=== PATIENT | male | born 1960 | race Caucasian/White ===

== ENCOUNTER 2021-01-02 08:45 | Emergency (ER) | payer MEDICARE ==
[~2021-01-02] VITALS: Ht 182.9 cm; Wt 70.3 kg
[~2021-01-02 08:45] MED LIST: Augmentin 875-1 EACH PO; Bactrim Ds Tab1 EACH PO; Flonase 0.05% N16 GM; HYDR1TAB94 PO; IBUP800 PO; PSEU120ER PO
[2021-01-02 10:13] LABS: BASOPHILS ABSOLUTE AUTO 0.06 K/mm3 (0.00-0.23); BASOPHILS PERCENT AUTO 0 % (0-2); EOSINOPHILS ABSOLUTE AUTO 0.01 K/mm3 (0.00-0.68); EOSINOPHILS PERCENT AUTO 0 % (0-6); Hematocrit 43.4 % (37.0-53.0); Hemoglobin 14.2 g/dL (13.5-17.5); IMMATURE GRAN ABSOLUTE AUTO 0.08 K/mm3 (0.00-0.10); IMMATURE GRAN PERCENT AUTO 1 % (0-1); LYMPHOCYTES ABSOLUTE AUTO 1.62 K/mm3 (0.84-5.20); LYMPHOCYTES PERCENT AUTO 9 % (21-46); MONOCYTES ABSOLUTE AUTO 1.11 K/mm3 (0.16-1.47); MONOCYTES PERCENT AUTO 6 % (4-13); Mean Corpuscular HGB 30.7 pg (26.0-34.0); Mean Corpuscular HGB Conc 32.7 g/dL (31.5-36.5); Mean Corpuscular Volume 94 fL (80-100); Mean Platelet Volume 9.7 fL (9.1-12.4); NEUTROPHILS ABSOLUTE AUTO 14.37 K/mm3 (1.96-9.15); NEUTROPHILS PERCENT AUTO 83 % (41-73); Platelet Count 289 K/mm3 (150-400); RDW Coefficient Variation 12.1 % (11.7-14.2); RDW Standard Deviation 42.3 fL (35.1-46.3); Red Blood Cell Count 4.62 M/mm3 (4.30-5.90); White Blood Cell Count 17.25 K/mm3 (4.00-11.30)
[2021-01-02 10:35] LABS: Alanine Aminotransfer (ALT/SGP 18 U/L (12-78); Albumin, Blood 3.6 g/dL (3.4-5.0); Albumin/Globulin Ratio 0.9 (0.8-1.8); Alk Phos 92 U/L (50-136); Anion Gap 6 mmol/L (6-16); Aspartate Aminotrans (AST/SGOT 10 U/L (12-37); Bilirubin, Total 0.7 mg/dL (0.1-1.0); Blood Urea Nitrogen 16 mg/dL (8-24); Bun/Creatinine Ratio 19.8 (12.0-20.0); CO2, Blood 25 mmol/L (21-32); Calcium, Blood 8.7 mg/dL (8.5-10.1); Chloride, Blood 103 mmol/L (98-108); Creatinine, Blood 0.81 mg/dL (0.60-1.20); Glomerular Filtration Rate >60 (60-); Glucose, Blood 132 mg/dL (70-99); Potassium, Blood 3.8 mmol/L (3.5-5.5); Sodium, Blood 134 mmol/L (136-145); Total Protein, Blood 7.6 g/dL (6.4-8.2)
[2021-01-02] MEDS ORDERED: Cephalexin500 M1 PO (13:35)
[2021-01-02] MEDS ORDERED: Norco 5-325 Ta1 EACH PO (13:44)
== END 2021-01-02 14:07 | disposition home or self-care (01) ==
LOC: ER 08:45
PROVIDERS: Physician Assistant
DX: L03.116 Cellulitis of left lower limb (principal); D72.829 Elevated white blood cell count, unspecified
CPT/HCPCS: 20610; 36415; 73030; 73564; 73701; 80053; 85025; 85651; 86140; 96365-59; 96375-59; 99284-25; J0696; J1170; J1885; J2405; Q9967

== ENCOUNTER 2025-05-07 01:15 | Inpatient (IN) | payer MEDICARE ==
[~2025-05-07] VITALS: Ht 185.4 cm; Wt 65.8 kg
[~2025-05-07 01:15] MED LIST changes: +Cephalexin500 M1 PO; +Norco 5-325 Ta1 EACH PO
[2025-05-07 02:11] LABS: BASOPHILS ABSOLUTE AUTO 0.07 K/mm3 (0.00-0.23); BASOPHILS PERCENT AUTO 0 % (0-2); EOSINOPHILS ABSOLUTE AUTO 0.19 K/mm3 (0.00-0.68); EOSINOPHILS PERCENT AUTO 1 % (0-6); Hematocrit 37.7 % (37.0-53.0); Hemoglobin 12.2 g/dL (13.5-17.5); IMMATURE GRAN ABSOLUTE AUTO 0.22 K/mm3 (0.00-0.10); IMMATURE GRAN PERCENT AUTO 1 % (0-1); LYMPHOCYTES ABSOLUTE AUTO 2.01 K/mm3 (0.84-5.20); LYMPHOCYTES PERCENT AUTO 10 % (21-46); MONOCYTES ABSOLUTE AUTO 0.84 K/mm3 (0.16-1.47); MONOCYTES PERCENT AUTO 4 % (4-13); Mean Corpuscular HGB Conc 32.4 g/dL (31.5-36.5); Mean Corpuscular Volume 96 fL (80-100); NEUTROPHILS ABSOLUTE AUTO 17.89 K/mm3 (1.96-9.15); NEUTROPHILS PERCENT AUTO 84 % (41-73); NRBC ABSOLUTE 0.00 K/mm3 (0.00-0.02); NRBC Auto 0.0 /100 WBC (0.0-0.2); Platelet Count 326 K/mm3 (150-400); RDW Coefficient Variation 13.3 % (11.7-14.2); RDW Standard Deviation 47.2 fL (35.1-46.3)
[2025-05-07 02:22] LABS: Prothrombin Time Results 11.1 Sec (9.7-11.5)
[2025-05-07 02:29] LABS: Alanine Aminotransfer (ALT/SGP 18 U/L (12-78); Albumin, Blood 3.3 g/dL (3.4-5.0); Albumin/Globulin Ratio 0.9 (0.8-1.8); Anion Gap 8 mmol/L (3-11); Aspartate Aminotrans (AST/SGOT 18 U/L (12-37); Bilirubin, Total 0.4 mg/dL (0.1-1.0); Blood Urea Nitrogen 23 mg/dL (8-24); CO2, Blood 27 mmol/L (21-32); Calcium, Blood 8.6 mg/dL (8.5-10.1); Chloride, Blood 106 mmol/L (98-108); Creatinine, Blood 0.99 mg/dL (0.60-1.20); Ethanol (Alcohol), Blood, Med <3 mg/dL; Globulin, Blood 3.6 g/dL (2.2-4.0); Glucose, Blood 153 mg/dL (70-99); Magnesium, Blood 2.5 mg/dL (1.6-2.4); Potassium, Blood 4.5 mmol/L (3.5-5.5); Sodium, Blood 136 mmol/L (136-145); Total Protein, Blood 6.9 g/dL (6.4-8.2)
[2025-05-07 03:27] LABS: Source, Urine Voided
[2025-05-07 03:31] LABS: Bilirubin, Urine Neg (Neg); Glucose Qualitative, Urine Neg (Neg); Ketones, Urine Neg (Neg); Leukocyte Esterase, Urine Neg (Neg); Protein, Urine 1+ (Neg); Specific Gravity, Urine 1.015 (1.003-1.022); Urobilinogen, Urine NORM (Normal)
[2025-05-07 03:37] LABS: Color, Urine Yellow (P-Yellow)
[2025-05-07 03:45] LABS: U Amphetamine Screen DETECTED; U Barbituate Screen Not Detected; U Benzodiazapine Screen Not Detected; U Buprenorphine Screen Not Detected; U Cannabinoids Screen Not Detected; U Cocaine Screen Not Detected; U Methadone Screen Not Detected; U Methamphetamine Screen DETECTED; U Opiates Screen Not Detected; U Oxycodone Screen Not Detected; U Phencyclidine Screen Not Detected
[2025-05-07] MEDS ORDERED: FLU VACC TS2025-26(6MOS UP)/PF 45 MCG/0.5 ML SYRINGE IM SCH (04:55)
[2025-05-07 05:58] LABS: BASOPHILS ABSOLUTE AUTO 0.05 K/mm3 (0.00-0.23); BASOPHILS PERCENT AUTO 0 % (0-2); EOSINOPHILS ABSOLUTE AUTO 0.04 K/mm3 (0.00-0.68); EOSINOPHILS PERCENT AUTO 0 % (0-6); Hematocrit 33.6 % (37.0-53.0); Hemoglobin 10.9 g/dL (13.5-17.5); IMMATURE GRAN ABSOLUTE AUTO 0.05 K/mm3 (0.00-0.10); IMMATURE GRAN PERCENT AUTO 0 % (0-1); LYMPHOCYTES ABSOLUTE AUTO 1.73 K/mm3 (0.84-5.20); LYMPHOCYTES PERCENT AUTO 14 % (21-46); MONOCYTES ABSOLUTE AUTO 0.46 K/mm3 (0.16-1.47); MONOCYTES PERCENT AUTO 4 % (4-13); Mean Corpuscular HGB Conc 32.4 g/dL (31.5-36.5); Mean Corpuscular Volume 94 fL (80-100); NEUTROPHILS ABSOLUTE AUTO 9.97 K/mm3 (1.96-9.15); NEUTROPHILS PERCENT AUTO 81 % (41-73); NRBC ABSOLUTE 0.00 K/mm3 (0.00-0.02); NRBC Auto 0.0 /100 WBC (0.0-0.2); Platelet Count 280 K/mm3 (150-400); RDW Coefficient Variation 13.5 % (11.7-14.2); RDW Standard Deviation 47.5 fL (35.1-46.3)
[2025-05-07 06:22] LABS: Alanine Aminotransfer (ALT/SGP 15.0 U/L (12-78); Albumin, Blood 3.0 g/dL (3.4-5.0); Albumin/Globulin Ratio 0.9 (0.8-1.8); Anion Gap 8.0 mmol/L (3-11); Aspartate Aminotrans (AST/SGOT 11.0 U/L (12-37); Bilirubin, Total 0.5 mg/dL (0.1-1.0); Blood Urea Nitrogen 20.0 mg/dL (8-24); CO2, Blood 27.0 mmol/L (21-32); Calcium, Blood 8.5 mg/dL (8.5-10.1); Chloride, Blood 106.0 mmol/L (98-108); Creatinine, Blood 0.84 mg/dL (0.60-1.20); Globulin, Blood 3.3 g/dL (2.2-4.0); Glucose, Blood 110.0 mg/dL (70-99); Potassium, Blood 4.5 mmol/L (3.5-5.5); Sodium, Blood 136.0 mmol/L (136-145); Total Protein, Blood 6.3 g/dL (6.4-8.2)
[2025-05-07 08:33] VITALS: BP 102/60
--- NOTE | 2025-05-07 08:48 | NUR ---
PT TO ROOM 208. IV INFUSING KINSEY. PT NPO FOR CONSULT. DENIES COMPLAINTS. PT ORIENTED TO ROOM. VSS. WILL CONTINUE TO MONITOR.
[2025-05-07 12:09] LABS: Hematocrit 33.5 % (37.0-53.0); Hemoglobin 11.0 g/dL (13.5-17.5)
[2025-05-07 14:04] VITALS: BP 99/63
--- NOTE | 2025-05-07 14:39 | NUR ---
IV FLUIDS ORDERED FINISHED. IV TO SL.
--- NOTE | 2025-05-07 14:51 | NUR ---
Pt. is awake in bed when he welcomes my visit. Pt. is pleasant but guarded at first. A flie review was facilitated but the Pt. did not share much. Pt. verbalized that he was alone. Listened with empathy and a calming presence. Pt. verbalized gratitude for the spiritual care visit and welcomed this general merchandise salesperson to return.
[2025-05-07 19:25] VITALS: BP 105/58
[2025-05-08] VITALS (8 sets, daily range): BP systolic 86–131; BP diastolic 49–70
[2025-05-08 01:50] LABS: Campylobacter Sp Not Detected (NOT DETECT); E. Coli O157 Not Detected (NOT DETECT); Enteroaggregative E. coli-EAEC Not Detected (NOT DETECT); Enteropathogenic E. coli-EPEC Not Detected (NOT DETECT); Enterotoxigenic E. coli-ETEC Not Detected (NOT DETECT); Salmonella Sp Not Detected (NOT DETECT); Shiga Toxin-prod E. coli-STEC Not Detected (NOT DETECT); Shigella/Enteroin E. coli-EIEC Not Detected (NOT DETECT); Vibrio Sp Not Detected (NOT DETECT)
--- NOTE | 2025-05-08 04:09 | NUR ---
NOC SUMMARY- PT HAS BEEN RESTING QUIETLY THROUGHOUT SHIFT. PT DENIES PAIN OR N/V. PT VOIDING AND REMAINS NPO. NO NEW ISSUES. CALL LIGHT IN REACH.
[2025-05-08 06:05] LABS: BASOPHILS ABSOLUTE AUTO 0.08 K/mm3 (0.00-0.23); BASOPHILS PERCENT AUTO 1 % (0-2); EOSINOPHILS ABSOLUTE AUTO 0.13 K/mm3 (0.00-0.68); EOSINOPHILS PERCENT AUTO 1 % (0-6); Hematocrit 34.8 % (37.0-53.0); Hemoglobin 11.0 g/dL (13.5-17.5); IMMATURE GRAN ABSOLUTE AUTO 0.04 K/mm3 (0.00-0.10); IMMATURE GRAN PERCENT AUTO 0 % (0-1); LYMPHOCYTES ABSOLUTE AUTO 2.53 K/mm3 (0.84-5.20); LYMPHOCYTES PERCENT AUTO 27 % (21-46); MONOCYTES ABSOLUTE AUTO 0.65 K/mm3 (0.16-1.47); MONOCYTES PERCENT AUTO 7 % (4-13); Mean Corpuscular HGB Conc 31.6 g/dL (31.5-36.5); Mean Corpuscular Volume 97 fL (80-100); NEUTROPHILS ABSOLUTE AUTO 5.97 K/mm3 (1.96-9.15); NEUTROPHILS PERCENT AUTO 64 % (41-73); NRBC ABSOLUTE 0.00 K/mm3 (0.00-0.02); NRBC Auto 0.0 /100 WBC (0.0-0.2); Platelet Count 277 K/mm3 (150-400); RDW Coefficient Variation 13.5 % (11.7-14.2); RDW Standard Deviation 48.5 fL (35.1-46.3)
[2025-05-08] MEDS ORDERED: Polyethylene Glycol 3350 17 gm PO ONE (18:00)
[2025-05-09 03:58] VITALS: BP 125/55
--- NOTE | 2025-05-09 04:37 | NUR ---
TYPEWRITER MECHANIC SUMMARY NO ACUTE CHANGES THIS SHIFT. PT AAOX4 AND INDEPENDENT IN ROOM. DENIES PAIN. NO NAUSEA. PT HAS NOT HAD ANY BM'S TONIGHT. PT HAS BEEN ON CLEAR LIQUID DIET AND WILL BE ON ICE CHIPS AND SIPS ONLY STARTING AT 0500. WILL START GOLYTELY AT 0700 IN PREP FOR COLONOSCOPY LATER TODAY. VSS, WCTM.
[2025-05-09 05:04] LABS: Hematocrit 34.0 % (37.0-53.0); Hemoglobin 11.0 g/dL (13.5-17.5)
[2025-05-09] MEDS ORDERED: Peg/Electrolytes 4,000 ML BTL PO ONE (07:00)
[2025-05-09 07:24] VITALS: BP 106/71
[2025-05-09] MEDS ORDERED: Peg/Electrolytes 4,000 ML BTL PO STA ×2 (13:29→15:54)
--- NOTE | 2025-05-09 13:45 | NUR ---
LATE ENTRY: 1300: SPOKE TO DR. ROJAS, PT HAS FINISHED THE GOLYTELY BUT HIS STOOLS ARE STILL LIQUID AND BROWN. DR. ROJAS WITH ORDERS FOR A SECOND GOLYLTELY, ENCOURAGE PT TO DRINK THE GOLYTELY UNTIL HIS STOOLS ARE CLEAR. HE DOESNOT NEED TO FINISH THE WHOLE THING. ONCE HIS STOOLS ARE CLEAR, WE ARE TO CALL DR. ROJAS IMMEDIATELY AND UPDATE HIM.
[2025-05-09 14:57] VITALS: BP 117/63
--- NOTE | 2025-05-09 18:38 | NUR ---
PHONE CALL TO PHYSICIAN - UPDATED DR. ROJAS THAT PT'S STOOLS ARE PIERRE WATERY, BUT STILL TINTED BROWN AND NOT CLEAR. DR. ROJAS SAID OK TO ADD GATORADE TO ENCOURAGE PT TO TOLERATE DRINKING THE GOLYTELY. PT IS TO DRINK THE GOLYTELY UNTIL HIS STOOLS ARE CLEAR, THEN HE IS TO STOP, NOTIFY HIS NURSE AND CALL IMMEDIATELY FOR COLONOSCOPY. RN EDUCATED PATIENT ON THE PROCEDURE, AND PT VERBALIZED UNDERSTANDING.
[2025-05-09 19:19] VITALS: BP 115/61
--- NOTE | 2025-05-09 19:50 | NUR ---
DEJON IS A&O X4. HE CONTINUES TO NEED ENCOURAGEMENT TO DRINK THE GOLYTELY. HIS STOOLS REMAIN BROWN WATERY LIQUID, LIKE DARK COFFEE. ROOM AIR. INDEPENDENT IN ROOM.
--- NOTE | 2025-05-09 19:58 | NUR ---
DR ROJAS IN TO SEE PT. PER DR ROJAS, PT OK TO BE BACK ON A CLEAR LIQUID DIET FOR TONIGHT AND TO RESTART GOLYTELY AT [address] ROJAS ALSO REQUESTED THAT GOLYTELY BE REFRIGERATED OVERNIGHT TO MAKE IT EASIER FOR THE PT TO DRINK IT TOMORROW. PT AGREEABLE TO PLAN AND REQUESTED SOME HOT TEA.
[2025-05-10] VITALS (34 sets, daily range): BP systolic 86–144; BP diastolic 44–87
--- NOTE | 2025-05-10 04:35 | NUR ---
OPERATIONS DIRECTOR SUMMARY NO ACUTE CHANGES THIS SHIFT. PT AAOX4 AND INDEPENDENT IN ROOM. DR ROJAS IN TO SEE PT AT START OF SHIFT AND GAVE OK FOR PT TO BE BACK ON CLAER LIQUID DIET OVERNIGHT AND TO RESTART GOLYTELY BOWEL PREP AGAIN AT 0800. STOOL IS LIQUID BUT STILL BROWN WITH SMALL BITS. PT DENIES PAIN AND HAS SLEPT WELL MOST OF THE NIGHT. GOAL IS FOR PT TO HAVE COLONOSCOPY LATER TODAY IF STOOL CLEARS. VSS, WCTM.
[2025-05-10 05:36] LABS: Hematocrit 30.9 % (37.0-53.0); Hemoglobin 10.3 g/dL (13.5-17.5)
--- NOTE | 2025-05-10 20:49 | NUR ---
History, Chart, Medications and Allergies reviewed before start of procedure. Lungs clear T/O to Auscultation. Patient confirms NPO status and agrees with scheduled surgery. Pre-Op teaching done. Pt verbalizes understanding. Patient states colon prep results clear.
[2025-05-10] MEDS ORDERED: Midazolam HCl 1MG / ML 2ML Vial ONE (21:22)
--- NOTE | 2025-05-10 21:26 | NUR ---
05/10/[id number] Bonny Daniel CONFIRMED AND REVIEWED H&P, MEDCICATIONS, ALLERGIES, MEDICAL HISTORY, RESPIRATORY HISTORY, VITAL SIGNS, 3-LEAD EKG, CONSENTS, AND PHYSICIAN ORDERS. PATIENT CONFIRMS NPO STATUS AND AGREES WITH SCHEDULED PROCEDURE. MONITOR INTACT WITH CONTINUOUS PULSE OXIMETRY, CAPNOGRAPHY, 3-LEAD EKG, INTERMITTENT BP. SUPPLEMENTAL O2 TO BE TITRATED THROUGHOUT PROCEDURE TO MAINTAIN O2 SATURATION ABOVE 90%. PATIENT DETERMINED TO BE ASA APPROPRIATE FOR PROPOFOL SEDATION PRIOR TO START OF PROCEDURE BY DR. ROJAS MALLAMPATI CLASS 2 AIRWAY: COMPLETE VISUALIZATION OF THE UVULA.
[2025-05-11 00:03] VITALS: BP 123/71
[2025-05-11 01:56] VITALS: BP 115/67
[2025-05-11 02:45] VITALS: BP 119/76
[2025-05-11 04:16] VITALS: BP 119/67
[2025-05-11 04:31] LABS: Hematocrit 31.8 % (37.0-53.0); Hemoglobin 10.3 g/dL (13.5-17.5)
[2025-05-11 07:41] VITALS: BP 115/67
[2025-05-11] MEDS ORDERED: DOCU100 PO (12:05)
--- NOTE | 2025-05-11 13:02 | NUR ---
DISCHARGE NOTE PT IS A/OX4. TOLERATING PO INTAKE. DENIES N/V. DENIES PAIN. PT VERABLIZED UNDERSTANDING OF OUTPATIENT CARE. IV REMOVED. PT TOOK ALL PERSONAL BELONGINGS. AWARE OF RECTAL BLEEDING. PT VERBALIZED UNDERSTANDING OF DC EDUCATION. PT DECLINED WC RIDE OUT. PT LEFT AT APPROX 1300.
== END 2025-05-11 13:02 | disposition home or self-care (01) | DRG 375 ==
LOC: ER 01:15 → SURS 04:31 → ERHOLD 04:31 → SURS 08:32
PROVIDERS: Emergency Medicine; Internal Medicine Gastroenterology; Student in an Organized Health Care Education/Training Program; ADMIT Internal Medicine
PROC: 3E02340 Introduction of Influenza Vaccine into Muscle, Percutaneous Approach (ICD-10-PCS; 2025-05-07)
PROC: 0DBP8ZZ Excision of Rectum, Via Natural or Artificial Opening Endoscopic (ICD-10-PCS; principal; 2025-05-10 21:30)
DX: C20 Malignant neoplasm of rectum (principal); K92.1 Melena; Q43.8 Other specified congenital malformations of intestine; D72.829 Elevated white blood cell count, unspecified; D64.9 Anemia, unspecified; F15.90 Other stimulant use, unspecified, uncomplicated; Z79.891 Long term (current) use of opiate analgesic; Z79.2 Long term (current) use of antibiotics
CPT/HCPCS: 36415; 71260; 74174; 74177; 80053; 80320; 82378; 83735; 85014; 85018; 85025; 85610; 86850; 86900; 86901; 87507; 88305; 99285-25; A9270; J2250; J2704; J7120; Q9967